=== PATIENT | male | born 1965 | race African-American/Black ===

== ENCOUNTER 2019-02-01 01:04 | Emergency (ER) | payer OTHER ==
[~2019-02-01] VITALS: Ht 172.7 cm; Wt 63.6 kg
[2019-02-01] MEDS ORDERED: CEPHALEXIN MONOHYDRATE 500 MG CAPSULE PO ONE (02:45)
[2019-02-01] MEDS ORDERED: ACETAMINOPHEN 325 MG TABLET PO ONE (02:45)
[2019-02-01] MEDS ORDERED: SULFAMETHOX/TRIMETH DS 800-160 MG/TABLET PO ONE (02:45)
[2019-02-01 03:00] VITALS: BP 118/84
== END 2019-02-01 03:06 | disposition home or self-care (01) ==
LOC: EMS 01:05
DX: S60.561A Insect bite (nonvenomous) of right hand, initial encounter (principal); S60.562A Insect bite (nonvenomous) of left hand, initial encounter; S80.861A Insect bite (nonvenomous), right lower leg, initial encounter; F17.210 Nicotine dependence, cigarettes, uncomplicated; W57.XXXA Bitten or stung by nonvenomous insect and other nonvenomous arthropods, initial encounter; Y93.89 Activity, other specified; Y92.89 Other specified places as the place of occurrence of the external cause; Y99.8 Other external cause status
CPT/HCPCS: 99406

== ENCOUNTER 2022-10-27 23:50 | Emergency (ER) | payer OTHER ==
[~2022-10-27] VITALS: Ht 172.7 cm; Wt 63.6 kg
[2022-10-27 23:59] VITALS: TEMP 98.5
[2022-10-28 00:25] LABS: BASOPHILS % (AUTO) 0.7 % (0.0-2.0); EOSINOPHILS % (AUTO) 12.1 % (1.0-6.0); HEMATOCRIT 40.8 % (41-53); HEMOGLOBIN 13.1 g/dL (13.5-17.5); LYMPHOCYTES % (AUTO) 19.4 % (22.0-44.0); MEAN CORPUSCULAR HEMOGLOBIN 26.8 pg (26.0-34.0); MEAN CORPUSCULAR HGB CONC 32.2 G/dL (31.0-37.0); MEAN CORPUSCULAR VOLUME 83 fL (80-100); MONOCYTES # (AUTO) 0.5 K/uL (0.1-1.0); MONOCYTES % (AUTO) 9.8 % (2.0-9.0); NEUTROPHILS # (AUTO) 2.9 K/uL (1.8-7.7); PLATELET COUNT (AUTO) 289 K/uL (150-450); RED BLOOD CELL COUNT(AUTO) 4.91 MIL/uL (4.50-5.90); RED CELL DISTRIBUTION WIDTH 13.9 % (11.5-14.5); WHITE BLOOD COUNT (AUTO) 5.1 K/uL (4.5-11.0)
[2022-10-28 00:37] LABS: ANION GAP 6 mmol/L (8-16); CARBON DIOXIDE 28 mmol/L (22-29); CHLORIDE 102 mmol/L (98-107); GLOMERULAR FILTR. RATE CALC > 60 mL/min (>60); GLUCOSE,RANDOM 116 mg/dL (70-110); POTASSIUM 3.6 mmol/L (3.5-5.1); SODIUM SERUM 136 mmol/L (136-145); UREA NITROGEN, BLOOD 14 mg/dL (7-18)
[2022-10-28 00:49] LABS: B-TYPE NATRIURETIC PEPTIDE 7 pg/mL (0-100); TROPONIN I-HIGH SENSITIVITY 10 ng/L (<76)
[2022-10-28 00:59] LABS: COVID AG,FIA SOURCE NASAL SWAB
[2022-10-28 01:00] LABS: ALANINE AMINOTRANSFERASE 29 U/L (12-78); ALKALINE PHOSPHATASE 107 U/L (46-116); ASPARTATE AMINOTRANSFERASE 32 U/L (15-37); BILIRUBIN,TOTAL 0.3 mg/dL (0.1-1.0); CREATINE KINASE, TOTAL ONLY 351 U/L (39-308); TOTAL PROTEIN, SERUM 7.9 g/dL (6.4-8.2)
[2022-10-28 01:19] LABS: SARS-COV2 (COVID) ANTIGEN,FIA Negative (Negative)
[2022-10-28 01:58] VITALS: BP 145/100; PULSE 77; RESP 17
[2022-10-28 02:09] LABS: APPEARANCE,URINE CLEAR (CLEAR); BILIRUBIN,URINE NEGATIVE (NEGATIVE); COLOR,URINE COLORLESS (YELLOW); GLUCOSE, URINE (UA) NEGATIVE (NEGATIVE); KETONES,URINE TRACE mg/dL (NEGATIVE); LEUKOCYTE ESTERASE ,URINE NEGATIVE (NEGATIVE); NITRATE,URINE NEGATIVE (NEGATIVE); OCCULT BLOOD,URINE NEGATIVE (NEGATIVE); PH,URINE 5.5 (5.0-8.0); PH,URINE DRUG SCREEN 5.5 (5.0-8.0); PROTEIN,URINE NEGATIVE (NEGATIVE); SPECIFIC GRAVITIY, URINE 1.011 (1.003-1.030); UROBILINOGEN,URINE <=1.0 mg/dL (<=1.0)
[2022-10-28 02:15] LABS: AMPHET/METH SCREEN,URINE POSITIVE (NEGATIVE); BARBITURATE SCREEN, URINE NEGATIVE (NEGATIVE); BENZODIAZEPINES SCREEN,URINE NEGATIVE (NEGATIVE); CANNABINOID SCREEN,URINE NEGATIVE (NEGATIVE); COCAINE SCREEN,URINE NEGATIVE (NEGATIVE); METHADONE SCREEN, URINE NEGATIVE (NEGATIVE); OPIATE SCREEN,URINE NEGATIVE (NEGATIVE); PHENCYCLIDINE SCREEN,URINE NEGATIVE (NEGATIVE)
[2022-10-28 02:16] LABS: ALCOHOL, URINE DRUG SCREEN NEGATIVE (NEGATIVE)
== END 2022-10-28 03:22 | disposition home or self-care (01) ==
LOC: EMS 23:52
DX: J45.909 Unspecified asthma, uncomplicated (principal); F15.10 Other stimulant abuse, uncomplicated; F17.210 Nicotine dependence, cigarettes, uncomplicated; Z20.822 Contact with and (suspected) exposure to COVID-19
CPT/HCPCS: 71045; 80053; 80307; 81003; 82550; 83880; 84484; 85025; 85379; 93005; 99285; 36415-L1; 36415-TC

== ENCOUNTER 2024-10-27 03:00 | Emergency (ER) | payer OTHER ==
[~2024-10-27] VITALS: Ht 172.7 cm; Wt 63.6 kg
[2024-10-27 03:02] VITALS: TEMP 98.2
[2024-10-27 05:24] LABS: PLATELET COUNT (AUTO) 268 K/uL (150-450); RED BLOOD CELL COUNT(AUTO) 4.75 MIL/uL (4.50-5.90); RED CELL DISTRIBUTION WIDTH 14.6 % (11.5-14.5); WHITE BLOOD COUNT (AUTO) 5.1 K/uL (4.5-11.0)
[2024-10-27 05:40] LABS: CALCIUM, TOTAL 8.6 mg/dL (8.8-10.5); CREATININE 0.65 mg/dL (0.60-1.30); GLOMERULAR FILTR. RATE CALC > 60 mL/min (>60); GLUCOSE,RANDOM 113 mg/dL (70-110); SODIUM SERUM 142 mmol/L (136-145); UREA NITROGEN, BLOOD 20 mg/dL (7-18)
[2024-10-27 05:46] LABS: ASPARTATE AMINOTRANSFERASE 34.0 U/L (15-37); TOTAL PROTEIN, SERUM 7.3 g/dL (6.4-8.2)
[2024-10-27 05:50] LABS: TROPONIN I-HIGH SENSITIVITY 14 ng/L (<76)
[2024-10-27] MEDS: IPRATROPIUM BROMIDE 0.5 MG/2.5 ML NEB SOLUTION NEB ONE (07:01)
[2024-10-27] MEDS: ALBUTEROL SULFATE 2.5 MG/0.5 ML 5 ML NEB SOLUTION NEB ONE (07:01)
[2024-10-27] MEDS: GuaiFENesin/D-METHORPHAN [SUGAR-FREE] 200-20MG/10 ML SYRUP UDCUP PO ONE (07:04)
[2024-10-27] MEDS: ACETAMINOPHEN 500 MG TABLET PO ONE (07:04)
[2024-10-27 07:10] VITALS: PULSE 76; RESP 16; O2SAT 98
[2024-10-27 07:50] VITALS: PULSE 87; RESP 16; O2SAT 99
[2024-10-27 08:30] VITALS: BP 130/79; PULSE 70; RESP 17; O2SAT 95
[2024-10-27] MEDS ORDERED: PRED-554 PO (08:32)
[2024-10-27] MEDS ORDERED: ALBU18HF12 IH (08:32)
[2024-10-27] MEDS ORDERED: GUAIFDM PO (08:32)
[2024-10-27] MEDS ORDERED: BECL10.62 IH (08:32)
== END 2024-10-27 09:57 | disposition home or self-care (01) ==
LOC: EMS 03:01
DX: J44.1 Chronic obstructive pulmonary disease with (acute) exacerbation (principal); F17.210 Nicotine dependence, cigarettes, uncomplicated; R05.9 Cough, unspecified
CPT/HCPCS: 99285; 71045; 80048; 80076; 83880; 84484; 85025; 36415; 94640; 93005; J7512